=== PATIENT | female | born 2005 ===

== ENCOUNTER 2024-12-06 12:37 | Outpatient (CLI) | payer OTHER, SELFPAY ==
--- NOTE | ~2024-12-06 | XR_ITS ---
Examination: XR foot LT min 3V Clinical History: PAIN x 1 week, fell last monday, no surgeries Comparison: None Technique: 4 views left foot Findings/impression: 1. No fracture or dislocation left foot. Reviewed, dictated and finalized at location R.
== END 2024-12-06 12:38 | disposition home or self-care (01) ==
PROVIDERS: PCP Nurse Practitioner; Visit Provider Nurse Practitioner
DX: M79.672 Pain in left foot (principal)
CPT/HCPCS: 73630